=== PATIENT | female | born 1940 | race Caucasian/White ===

== ENCOUNTER 2020-04-01 05:09 | Inpatient (IN) ==
--- NOTE | 2020-03-26 13:03 | XRay Report ---
CLINICAL INFORMATION: COMPARISON: None. TECHNIQUE: PA and Lateral views FINDINGS: The heart size, mediastinum and pulmonary vessels are unremarkable. The lungs are clear. There are no effusions. IMPRESSION: Normal chest. Interpreted and Authenticated by: Mikey Real 03/26/20
[2020-03-26 13:57] LABS: Prothrombin Time 13.1 sec (11.9-14.5)
[2020-03-26 14:04] LABS: Basophils # (Auto) 0.09 K/mcL (0.00-0.30); Basophils % (Auto) 1.1 % (0.0-2.0); Eosinophils # (Auto) 0.17 K/mcL (0.00-0.70); Eosinophils % (Auto) 2.1 % (0.0-7.0); Granulocytes % (Auto) 56.2 % (38.0-78.0); Hematocrit 40.7 % (34.1-44.9); Lymphocytes % (Auto) 29.6 % (15.5-49.0); Mean Cell Volume 90.2 fL (80.0-100.0); Mean Corpuscular HGB Conc 31.9 g/dL (31.0-36.0); Mean Platelet Volume 9.6 fL (7.4-10.4); Monocytes # (Auto) 0.89 K/mcL (0.10-0.90); Platelet Count 339 K/mcL (140-440); RBC 4.51 M/mcL (3.59-5.38); Red Cell Distribution Width 13.5 % (11.5-14.5); WBC 8.1 K/mcL (4.50-11.00)
[2020-03-26 14:12] LABS: ALT/SGPT 13 U/l (0-40); AST/SGOT 24 U/l (0-37); Albumin 4.1 gm/dL (3.2-5.2); Albumin/Globulin Ratio 1.5 (1.0-2.3); Alkaline Phosphatase 106 U/L (39-117); Bilirubin,Total 0.3 mg/dL (0.0-1.0); Blood Urea Nitrogen 14 mg/dl (8-23); Calcium 9.6 mg/dl (8.6-10.4); Carbon Dioxide 24 mmol/L (22-30); Chloride 104 mmol/L (96-108); Globulin 2.7 gm/dL (2.2-3.7); Glomerular Filtration Rate 60; Glucose 96 mg/dL (70-105)
[~2020-04-01 05:09] MED LIST: IPRATROPIUM/ALBUTEROL 3 ML AMPUL.NEB NEB PRN; SCOPOLAMINE 1 PATCH PATCH TOPICAL PRN; ceFAZolin 1 GM VIAL IV ONE
[2020-04-01] MEDS ORDERED: ceFAZolin 2 GM in DEXTROSE 5% IN WATER 50 ML IV SCH (07:30)
[2020-04-01] MEDS ORDERED: LIDOCAINE HCL/PF 100 MG/5 ML SYRINGE IV ONE (07:46)
[2020-04-01] MEDS ORDERED: fentaNYL 100 MCG/2 ML VIAL IV ONE (07:46)
[2020-04-01] MEDS ORDERED: PROPOFOL 200 MG/20 ML VIAL IV ONE (07:46)
[2020-04-01] MEDS ORDERED: ONDANSETRON 4 MG/2 ML VIAL ONE (07:46)
[2020-04-01] MEDS ORDERED: SUGAMMADEX SODIUM 200 MG/2 ML VIAL IV ONE (07:46)
[2020-04-01] MEDS ORDERED: ROCURONIUM 10 MG/ML ML IV ONE (07:46)
[2020-04-01] MEDS ORDERED: DEXAMETHASONE 10 MG/ML VIAL ONE (07:46)
[2020-04-01] MEDS ORDERED: KETAMINE 100 MG/ML ML ONE (07:46)
[2020-04-01] MEDS ORDERED: BACITRACIN 50,000 UNIT VIAL IR ONE (08:09)
[2020-04-01] MEDS ORDERED: BENZOCAINE/MENTHOL 1 LOZENGE PO PRN (08:43)
[2020-04-01] MEDS ORDERED: MEPERIDINE 25 MG/ML SYRINGE IV PRN (08:43)
[2020-04-01] MEDS ORDERED: PROMETHAZINE 25 MG/ML VIAL IV PRN (08:43)
[2020-04-01] MEDS ORDERED: ACETAMINOPHEN 1,000 MG/100 ML BOTTLE IV ONE (08:43)
[2020-04-01] MEDS ORDERED: LACTATED RINGERS 250 ML IV PRN (08:43)
[2020-04-01] MEDS ORDERED: diphenhydrAMINE 50 MG/ML VIAL IV PRN (08:43)
[2020-04-01] MEDS ORDERED: NALOXONE HCL 0.4 MG/ML VIAL IV PRN (08:43)
[2020-04-01] MEDS ORDERED: ONDANSETRON 4 MG/2 ML VIAL IV PRN (08:43)
[2020-04-01] MEDS ORDERED: IPRATROPIUM/ALBUTEROL 3 ML AMPUL.NEB NEB PRN (08:43)
[2020-04-01] MEDS ORDERED: LACTATED RINGERS 1,000 ML IV SCH (08:45)
[2020-04-01] MEDS ORDERED: ACETAMINOPHEN 650 MG/65 ML BOTTLE IV PRN ×2 (08:58→10:27)
--- NOTE | 2020-04-01 08:58 | Brief Operative Note ---
Brief Operative Note Date of procedure: 04/01/20 Pre-op diagnosis: LEFT SPIGELIAN HERNIA Post-op diagnosis: same (LEFT SPIGELIAN HERNIA) Procedure: LEFT SPIGELIAN HERNIA REPAIR Grafts/Implants: Yes (10X15 SKIRTED OVAL SURGIMESH) Anesthesia: GETA Findings: LARGE HERNIA DEFECT ALONG LEFT LOWER SEMILUNAR LINE Complications: none Surgeon: Robby Romero Estimated blood loss (cc): 25 Condition: stable Disposition: PACU
[2020-04-01] MEDS ORDERED: 0.9 % SODIUM CHLORIDE 1,000 ML IV SCH (09:00)
[2020-04-01] MEDS ORDERED: oxyCODONE/APAP 5/325MG TABLET PO PRN (09:04)
[2020-04-01] MEDS: fentaNYL 100 MCG/2 ML VIAL IV PRN ×4 (09:27→09:53)
[2020-04-01] MEDS: 0.9 % SODIUM CHLORIDE 1,000 ML IV SCH (12:04)
[2020-04-01] MEDS: oxyCODONE/APAP 5/325MG TABLET PO PRN ×2 (13:15→21:43)
--- NOTE | 2020-04-01 13:56 | Operative Note ---
DATE OF OPERATION: 04/01/2020 PREOPERATIVE DIAGNOSIS: Left spigelian hernia. POSTOPERATIVE DIAGNOSIS: Left spigelian hernia. PROCEDURE: Left spigelian hernia repair. SURGEON: Robby Romero M.D. FINDINGS: Large hernia defect along the left lower semilunar line. DESCRIPTION OF PROCEDURE: Under general anesthesia, patient's abdomen was prepped and draped in a sterile field. Curvilinear incision was made along the lower semilunar line. Incision extended through the superficial fascia and muscle down to the defect. The hernia contents pushed back into the peritoneal cavity. A 10 x 15 skirted oval Surgimesh was placed beneath the muscle and sutured circumferentially with interrupted 0 Prolene. The muscle and fascia were closed over the repair. A #7 Victor M drain was placed over the mesh and the muscle was then closed over the drain. Subcutaneous tissue was irrigated and then closed with 2-0 Vicryl. Skin was closed with dilan. Drain was secured with 2-0 nylon. The patient tolerated the procedure well. Tegaderm dressings were placed. The patient was awakened, transferred to a bed, and taken to the postanesthetic care unit in a stable, satisfactory condition. LCS:corin Job ID: [id number] Doc ID: [id number] Robby Romero M.D.
[2020-04-01] MEDS ORDERED: 0.9 % SODIUM CHLORIDE 10 ML SYRINGE IV SCH (14:00)
[2020-04-02] MEDS: 0.9 % SODIUM CHLORIDE 1,000 ML IV SCH ×2 (00:25→12:50)
[2020-04-02] MEDS: oxyCODONE/APAP 5/325MG TABLET PO PRN ×2 (03:50→10:42)
[2020-04-02 08:34] LABS: Basophils # (Auto) 0.02 K/mcL (0.00-0.30); Basophils % (Auto) 0.2 % (0.0-2.0); Eosinophils # (Auto) 0.01 K/mcL (0.00-0.70); Eosinophils % (Auto) 0.1 % (0.0-7.0); Granulocytes % (Auto) 73.7 % (38.0-78.0); Hematocrit 32.6 % (34.1-44.9); Hemoglobin 10.7 g/dL (11.2-15.7); Lymphocytes # (Auto) 1.85 K/mcL (1.50-4.80); Lymphocytes % (Auto) 16.4 % (15.5-49.0); Mean Cell Volume 88.8 fL (80.0-100.0); Mean Corpuscular HGB Conc 32.8 g/dL (31.0-36.0); Mean Platelet Volume 9.6 fL (7.4-10.4); Monocytes # (Auto) 1.08 K/mcL (0.10-0.90); Monocytes % (Auto) 9.6 % (1.0-12.0); Platelet Count 287 K/mcL (140-440); RBC 3.67 M/mcL (3.59-5.38); Red Cell Distribution Width 13.4 % (11.5-14.5); WBC 11.3 K/mcL (4.50-11.00)
--- NOTE | 2020-04-02 13:37 | Discharge Summary ---
Discharge Provider Provider Patient information: Note initiated : 04/02/20 at 1:35 pm Service Date, if different from initiated Date: [] Patient: Namrata Bender 80 y/o F admitted on 04/01/20 for Left Spigelian Hernia Repair . Chief Complaint: [] Date of admission: 04/01/20 05:09 Discharge date: 04/02/20 Primary care physician: SRUTHI Solorzano Admitting clinician: Robby Romero Attending physician on admission: Robby Romero Attending physician on discharge: Robby Romero Discharging clinician: Robby Romero COURSE Hospital Course Hospital course: 80-year-old female who is status post repair of left-sided spigelian hernia on 01 April 2020. Patient has done well and is tolerating a diet. She is passing flatus and does not have any nausea. The ALINA drainage is serous sanguinous but decreasing in volume. There is no evidence of inflammation. Patient is stable enough for discharge home. Discharge diagnosis: left spigelian hernia Secondary discharge diagnosis: GERD Irritable bowel syndrome Reason for admission: postoperative spigelian hernia repair Procedures: left-sided spigelian hernia repair Pertinent studies/significant findings: none Complications: none Time Spent with Patient Time attestation: Total time spent providing and/or coordinating discharge services: Physical Examination Vital Signs Vital signs: Temp Pulse Resp BP Pulse Ox 98.6 F 61 18 116/61 94 04/02/20 07:00 04/02/20 07:00 04/02/20 07:00 04/02/20 07:00 04/02/20 07:00 General physical appearance General physical exam: well developed, well nourished, moderate distress and moderate pain Eyes Eye exam: PERRL and normal ocular movement ENT ENT exam: normal nares, normal mucosa and no hearing loss Head Head exam IM: Present atraumatic, normal inspection and normocephalic Neck Neck exam: no masses, no bruits, trachea midline and no lymphadenopathy Cardiovascular Cardiovascular exam IM: Present normal rate and rhythm, RRR and +S1; Absent gallop and JVD Respiratory Respiratory exam: normal expansion, normal respiratory effort, clear to percussion and clear to auscultation Abdomen Abdomen: Present tender, bowel sounds (normal active bowel sounds) and surgical scars (surgical incision is unremarkable) Integumentary Integumentary: Present no rash, no growths and no abnormal pigmentation Neurologic Neurologic: Present normal coordination and normal sensation Musculoskeletal Musculoskeletal: Present normal gait and normal posture Psychiatric Psychiatric: Present oriented to time, oriented to person, oriented to place, speech is normal and memory intact Discharge Plan Patient/Caregiver Discharge Instructions Activity: increase activity as tolerated Diet: Regular Diet Instructions: Ventral Hernia (DC) Prescriptions: New oxycodone-acetaminophen [Endocet] 10-325 mg Tablet 1 tab PO Q4H PRN (Reason: Pain) Qty: 40 RF: 0 Continued multivitamin tablet 1 tab PO QDAY RF: 0 omega-3 fatty acids 1,000 mg capsule See Rx Instructions PO QDAY RF: 0 calcium carb-vitamin D3-vit K2 1,000 mg PO QDAY RF: 0 ascorbic acid (vitamin C) 500 mg tablet 500 mg PO QDAY RF: 0 cholecalciferol (vitamin D3) 1,000 unit capsule 1,000 unit PO QDAY RF: 0 vitamin B complex [Vitamins B Complex] tablet 1 tab PO QDAY RF: 0 naproxen sodium [Aleve] 220 mg tablet 220 mg PO BID PRN (Reason: Pain) RF: 0 vitamin A-vitamin C-vit E-min tablet 1 tab PO QDAY RF: 0 aspirin 81 MG tablet,chewable 81 mg PO DAILY RF: 0 alfalfa 250 mg Tablet 1,500 mg PO BID RF: 0 Follow Up Plan Follow up with: Robby Romero MD [Physician] - 04/16/20 1:15 pm Patient Disposition: Home, Self-Care Prognosis: Good Rehab Potential: Good I certify that the patient requires SNF services: No Overall status at discharge: patient is progressing back to baseline Discharge Orders: Discharge Order (Routine); Ordered 04/02/20 Ordered By: Robby Romero Pending Pending Pending: Resuscitation Status Full Code Diet Regular Diet Start Hien Oct 1 1327 Sodium Chloride (Sodium Chloride 0.9%) 1,000 mls @ 75 mls/hr IV .[id number] ROMARIO Last Admin: 04/02/20 12:50 Dose: Not Given Documented by: Admin: 04/02/20 00:25 Dose: 75 mls/hr Documented by: Infusion: 04/02/20 00:25 Dose: 75 mls/hr Documented by: Admin: 04/01/20 12:04 Dose: 75 mls/hr Documented by: ETTA Oxycodone/Acetaminophen (Percocet 5-325 Mg) 1 tab PO Q4HP PRN; Protocol PRN Reason: Per Pain Protocol Last Admin: 04/02/20 10:42 Dose: 1 tab Documented by: Admin: 04/02/20 03:50 Dose: 1 tab Documented by: Admin: 04/01/20 21:43 Dose: 1 tab Documented by: Admin: 04/01/20 13:15 Dose: 1 tab Documented by: ETTA Shift Summary 04/02/20 04:17 Shift Summary by Saranya Kirkpatrick The patient is alert and oriented times four, she uses her call light appropriately and is up out of bed to the restroom with 1 SBA/gaitbelt and requires minimal assist with ADLs. Dressing to her post-surgical hernia along the left lower semilunar line was changed last evening and she tolerated this well, ALINA drain in place to left upper abdominal quadrant has bloody output free from odor with continuous suction. She has an abdominal binder in place and Tegaderm over dilan to her incision that are well approximated, abdomen is slightly distended/bloated and hypoactive bowel tones. IV to left forearm infusing NS at 75 ml/hr and she is tolerating her clear liquid diet well post op with no nausea. Bilateral hearing aides for hearing deficit at home, medicated with Percocet 1 tab twice this shift and pain well managed, SCDs in place bilaterally, poor use of I/S up to 750 only while awake and guarding her abdomen. Plan is to discharge home when able and has support if needed, will update shift summary report at bedside. Initialized on 04/02/20 04:17 - END OF NOTE
== END 2020-04-02 15:08 | disposition home or self-care (01) | DRG 355 ==
LOC: MEDSUR 05:09
PROVIDERS: ADMIT Family Medicine Adult Medicine; ATTEND Family Medicine Adult Medicine